=== PATIENT | female | born 1985 | race Caucasian/White ===

== ENCOUNTER 2017-12-24 10:54 | Emergency (ER) | payer OTHER ==
[2017-12-24] MEDS ORDERED: Lorazepam 1 MG TAB ONE (12:56)
[2017-12-24 13:10] LABS: #Basophils 0.1 thou/uL (0.0-0.2); #Eosinphils 0.1 thou/uL (0.0-0.7); #Lymphocytes 1.3 thou/uL (1.20-3.40); #Monocytes 0.4 thou/uL (0.11-0.59); #Neutrophils 5.5 thou/uL (1.40-6.50); %Basophils 0.7 % (0.0-1.0); %Lymphocytes 17.9 % (21.0-51.0); %Monocytes 4.9 % (0.0-10.0); %Neutrophils 75.5 % (42.0-75.0); Hemoglobin 15.4 g/dL (12.0-16.0); Mean Corpuscular HGB CONC 33.6 g/dL (32.0-36.0); Mean Corpuscular Hemoglobin 31.2 pg (27.0-31.0); Mean Corpuscular Volume 92.7 fL (78.0-98.0); Mean Platelet Volume 8.2 fL (7.4-10.4); Platelet Count 257 thou/uL (130-400); RBC Distribution Width 11.6 % (11.5-14.5); Red Blood Cell (RBC) Count 4.95 mill/uL (4.20-5.40); White Blood Cell (WBC) Count 7.3 thou/uL (4.8-10.8)
--- NOTE | 2017-12-24 13:11 | RAD ---
2 VIEWS CHEST: Date: 12/24/17 PROVIDED CLINICAL HISTORY: Dyspnea. FINDINGS: Comparison with 06/21/13. Cardiac and mediastinal silhouette is within normal limits. Lungs appear clear. No pleural fluid or p neumothorax apparent. IMPRESSION: No evidence for an acute cardiopulmonary process. POS: [facility]
[2017-12-24 13:27] LABS: BHCG - Serum Negative (NEGATIVE); Pregs Control Background? CLEAR/WHITE (CLR/WHITE); Pregs Control Bar Appear? YES (CONTROL BAR)
[2017-12-24 13:31] LABS: ALT (SGPT) 16 U/L (8-55); AST (SGOT) 19 U/L (5-34); Albumin 4.7 g/dL (3.5-5.0); Alkaline Phosphatase 77 U/L (40-150); Anion Gap 13 mmol/L (10-20); BUN (Urea Nitrogen) 9 mg/dL (7.0-18.7); Bilirubin, Total 0.7 mg/dL (0.2-1.2); Calc. Creatinine Clearance 0 mL/min (70-130); Carbon Dioxide 23 mmol/L (22-29); Chloride 106 mmol/L (98-107); Estimated GFR-MDRD 88; Globulin 3.9 g/dL (2.4-3.5); Glucose 95 mg/dL (70-105); Potassium 3.9 mmol/L (3.5-5.1); Protein, Total 8.6 g/dL (6.0-8.3); Sodium 138 mmol/L (136-145)
[2017-12-24 13:36] LABS: CKMB 1.1 ng/mL (0-6.6); Troponin I Less than 0.010 ng/mL (< 0.028)
== END 2017-12-24 14:45 | disposition home or self-care (01) ==
LOC: ERS 10:54
DX: F41.9 Anxiety disorder, unspecified (principal); R25.1 Tremor, unspecified
CPT/HCPCS: 36415; 71046; 80053; 82553; 84484; 84703; 85025; 93005

== ENCOUNTER 2018-04-04 07:11 | Emergency (ER) | payer SELFPAY ==
[2018-04-04] MEDS ORDERED: Ibuprofen 800 MG TAB ONE (07:34)
== END 2018-04-04 07:40 | disposition home or self-care (01) ==
LOC: ERS 07:11
DX: M62.838 Other muscle spasm (principal); F41.9 Anxiety disorder, unspecified
CPT/HCPCS: 99283

== ENCOUNTER 2018-04-05 13:39 | Emergency (ER) | payer SELFPAY ==
--- NOTE | 2018-04-05 14:29 | RAD ---
CHEST ONE VIEW: Date: 04-05-18 Time: 2:13 p.m. History: Chest pain Comparison: 12-24-17 FINDINGS: The heart size is normal. The lungs are expanded without focal areas of consolidation, pneumothorax o r pleural effusions. IMPRESSION: No radiographic evidence of acute cardiopulmonary process. POS: [facility]
[2018-04-05 15:10] LABS: #Basophils 0.1 thou/uL (0.0-0.2); #Eosinphils 0.3 thou/uL (0.0-0.7); #Lymphocytes 1.5 thou/uL (1.20-3.40); #Monocytes 0.5 thou/uL (0.11-0.59); #Neutrophils 4.7 thou/uL (1.40-6.50); %Basophils 0.7 % (0.0-1.0); %Lymphocytes 21.4 % (21.0-51.0); %Monocytes 7.3 % (0.0-10.0); %Neutrophils 66.6 % (42.0-75.0); Mean Corpuscular HGB CONC 32.6 g/dL (32.0-36.0); Mean Corpuscular Hemoglobin 30.3 pg (27.0-31.0); Mean Corpuscular Volume 92.9 fL (78.0-98.0); Mean Platelet Volume 8.3 fL (7.4-10.4); Platelet Count 243 thou/uL (130-400); RBC Distribution Width 11.6 % (11.5-14.5); Red Blood Cell (RBC) Count 4.31 mill/uL (4.20-5.40); White Blood Cell (WBC) Count 7.1 thou/uL (4.8-10.8)
[2018-04-05 15:34] LABS: ALT (SGPT) 10 U/L (8-55); AST (SGOT) 14 U/L (5-34); Alkaline Phosphatase 72 U/L (40-150); Anion Gap 11 mmol/L (10-20); BUN (Urea Nitrogen) 9 mg/dL (7.0-18.7); Bilirubin, Total 0.4 mg/dL (0.2-1.2); CK (CPK) 71 U/L (29-168); Calc. Creatinine Clearance 0 mL/min (70-130); Calcium 9.2 mg/dL (7.8-10.44); Carbon Dioxide 25 mmol/L (22-29); Chloride 109 mmol/L (98-107); Estimated GFR-MDRD 87; Globulin 3.4 g/dL (2.4-3.5); Glucose 114 mg/dL (70-105); Lipase 14 U/L (8-78); Potassium 3.7 mmol/L (3.5-5.1); Protein, Total 7.4 g/dL (6.0-8.3); Sodium 141 mmol/L (136-145)
--- NOTE | 2018-04-05 16:07 | ULT ---
ULTRASOUND ABDOMEN LIMITED: (RIGHT UPPER QUADRANT) 04/05/18 HISTORY: 32-year-old female with epigastric abdominal pain. FINDINGS: The gallbladder has normal wall thickness and has no evidence of gallstones or sludge. The hepatic e chogenicity is normal. The right kidney has normal echogenicity and has no hydronephrosis. The panc reas is obscured by shadowing from bowel gas. There is no biliary dilation. The common duct caliber is 5 mm. IMPRESSION: 1) No pathology identified. 2) Pancreas not visualized. jn [] POS: [facility]
[2018-04-05 16:49] LABS: Bilirubin Negative (Negative); Blood, Urine Large (Negative); Clarity CLEAR (Clear); Glucose, Urine (Dipstick) Negative (Negative); Leukocyte Negative (Negative); Nitrite Negative (Negative); Protein, Urine (Dipstick) Negative (Neg-Trace); Specific Gravity, Urine 1.012 (1.002-1.036)
[2018-04-05 16:50] LABS: Pregnancy Test - Urine (BHCG) Negative (Negative); Pregu Control Background? CLEAR/WHITE (CLR/WHITE); Pregu Control Bar Appear? YES (CONTROL BAR); Specific Gravity 1.012 (1.002-1.036)
[2018-04-05 16:51] LABS: Hyaline Casts/LPF 0-3 HYALINE CAST LPF (0-3 Hyaline); Pathc Cast-AUWi Flag 0.29 (0-2.49)
[2018-04-05 16:53] LABS: Yeast-AUWi Flag 40.9 (0-25.0)
[2018-04-05 17:01] LABS: Bacteria/HPF 1+ HPF (None Seen); Yeast-All Forms None Seen HPF (None Seen)
== END 2018-04-05 17:13 | disposition home or self-care (01) ==
LOC: ERS 13:39
DX: F41.9 Anxiety disorder, unspecified (principal)
CPT/HCPCS: 36415; 71045; 76705; 80053; 81003; 81015; 81025; 82550; 83690; 84484; 85025; 87086; 93005; 94760

== ENCOUNTER 2019-03-09 19:12 | Emergency (ER) | payer SELFPAY ==
[2019-03-09] MEDS ORDERED: Acetaminophen 500 MG TAB ONE (19:46)
== END 2019-03-09 20:40 | disposition home or self-care (01) ==
LOC: ERS 19:12
DX: M62.838 Other muscle spasm (principal); R51 Headache; M54.9 Dorsalgia, unspecified; M54.2 Cervicalgia; M79.605 Pain in left leg; F41.9 Anxiety disorder, unspecified; V44.5XXA Car driver injured in collision with heavy transport vehicle or bus in traffic accident, initial encounter
CPT/HCPCS: 99284